=== PATIENT | female | born 1980 | race Caucasian/White ===

== ENCOUNTER 2018-09-10 23:27 | Inpatient (IN) | payer OTHER ==
[2018-09-10] MEDS ORDERED: Ringers Lactate 1,000 ML IV SCH (23:45)
[2018-09-10] MEDS ORDERED: BUTORPHANOL 1 MG/ML INJ IV PRN (23:58)
[2018-09-10] MEDS ORDERED: PENICILLIN 5 MU in NA CHLORIDE 0.9% 100 ML IV ONE (23:58)
[2018-09-10] MEDS ORDERED: MEPERIDINE HCL 25 MG/0.5 ML IV PRN (23:58)
[2018-09-10] MEDS ORDERED: PROMETHAZINE 25 MG/ML VIAL IM PRN (23:58)
[2018-09-10] MEDS ORDERED: METHYLERGONOVINE 0.2MG/ML AMP IM PRN (23:58)
[2018-09-10] MEDS ORDERED: Ringers Lactate 1,000 ML IV PRN (23:58)
[2018-09-10] MEDS ORDERED: CARBOPROST TROME 250 MCG/ML IM PRN (23:58)
[2018-09-11 00:33] LABS: RPR Titer ND
[2018-09-11 00:35] LABS: Absolute Lymphocytes (CBC) 2.3 K/uL (0.7-4.9); Basophils % 0.3 % (0-1.3); Eosinophils % 1.3 % (0-4.4); Hematocrit 37.2 % (36.0-45.0); Lymphocytes % 18.3 % (15.3-44.8); MPV 10.3 fL (7.6-11.3); Monocytes % 6.1 % (3.3-12.3); RBC Red Blood Cell Count 4.21 M/uL (3.86-4.86)
[2018-09-11 00:49] LABS: Urine Appearance CLEAR; Urine Bilirubin NEGATIVE (NEG); Urine Blood NEGATIVE (NEG); Urine Color YELLOW; Urine Glucose NEGATIVE (NEG); Urine Protein NEGATIVE (NEG); Urine Specific Gravity 1.015 (1.005-1.030); Urine Urobilinogen 0.2 mg/dL (0.2-1.0)
[2018-09-11] MEDS ORDERED: FENTANYL CITR 100 MCG/2 ML IV ONE (01:00)
[2018-09-11] MEDS ORDERED: ROPIVACAINE HCL 100 ML IV PRN (01:00)
[2018-09-11 01:05] LABS: Urine Bacteria <20 /HPF (<20); Urine Culture Reflex Order NOT NEEDED; Urine RBC NONE SEEN /HPF (NONE SEEN)
[2018-09-11] MEDS ORDERED: ROPIVACAINE HCL 0.2% 20ML AMP SQ ONE (01:05)
[2018-09-11] MEDS ORDERED: FENTANYL CITR 100 MCG/2 ML ONE (01:47)
[2018-09-11] MEDS ORDERED: OXYTOCIN/LR 20 UNIT/1,000 ML BAG IV ONE (01:59)
[2018-09-11] MEDS ORDERED: DOCUSATE NA/SENNA CONC 1 TAB PO PRN (02:36)
[2018-09-11] MEDS ORDERED: Oxycodone HCl/Acetaminophen 1 TAB TAB PO PRN (02:36)
[2018-09-11] MEDS ORDERED: ACETAMINOPHEN 500 MG TAB PO PRN (02:36)
[2018-09-11] MEDS ORDERED: DIPHENHYDRAMINE 25 MG TAB/CAP PO PRN ×2 (02:36→03:17)
[2018-09-11] MEDS ORDERED: BISACODYL 10 MG RECTAL SUPP RECT PRN (02:36)
[2018-09-11] MEDS ORDERED: OXYTOCIN/LR 20 UNIT/1,000 ML BAG IV SCH (03:00)
[2018-09-11] MEDS: IBUPROFEN 200 MG TAB PO PRN ×3 (07:07→19:38)
--- NOTE | 2018-09-11 11:53 | PN ---
patient, doing quite well. This morning, lochia is normal. IV will be discontinued withi n the next hour. The baby is doing well. We went over dismissal instructions. Dr. Monroy will pro bably be back this afternoon if not tomorrow morning and issue final dismissal orders. She has had h er Tdap immunization during her . No post epidural problems. The pruritus that she was inlulu bain reporting has now dissipated without any medications being given. No complaints or problems a t this time. NEY/ANTONELLA Voice ID: [id number] Report ID: [id number]
--- NOTE | 2018-09-11 13:11 | OP ---
Surgeon: Tj Chambers MD A 37-year-old 2, para 1, at 39 weeks 3 days, came in active labor, 3 cm on admission, went ra pidly to 6, at which time she requested and received epidural anesthesia. Within the next 30 minutes to an hour was complete and on the perineum. Second stage of 10 minutes or less. Spontaneous vagin al delivery of a 7-pound 6-ounce male infant. Nuchal cord x2 loosely. Apgars 9 and 9. A small firs t-degree laceration sutured with 2-0 chromic. Schultze delivery of the placenta, which was inspected and noted to be intact and normal. Less than 100 cc blood loss. Penicillin prophylaxis 5 million u nits x1. Patient tolerated all procedures well. Final Diagnoses: Term intrauterine , 39 weeks 3 days, spontaneous labor, vaginal delivery. Nuchal cord x2. Penicillin prophylaxis. NEY/ANTONELLA Voice ID: [id number] Report ID: [id number]
[2018-09-11] MEDS: Oxycodone HCl/Acetaminophen 1 TAB TAB PO PRN (14:55)
[2018-09-11 21:51] LABS: RPR (Rapid Plasma Reagin) NON-REACT (NON-REACT)
[2018-09-12] MEDS: Oxycodone HCl/Acetaminophen 1 TAB TAB PO PRN (02:05)
[2018-09-12] MEDS: IBUPROFEN 200 MG TAB PO PRN (02:55)
[2018-09-12 08:29] VITALS: BP 112/57; TEMP 97.6; BMI 30.9
--- NOTE | 2018-09-12 08:30 | PREOPHP ---
Date of Admission: 09/10/2018 Summary: This is a 37-year-old 2, para 1, patient of Dr. Mathias, followed antepartum with out complications. Rh positive, immune to Rubella. Positive beta strep screen. Came in active labo r. Dylan every 2 minutes. A good 3 cm on admission. The patient progressed to 6 cm at which time, she expresses desire for epidural this had been placed by Dr. Cade and she is quite comfortable at this point. Exam by myself and now shows the patient 8-1/2 cm, 100% effaced, 0 to almost +1 stat ion. Rupture of membranes, clear fluid. Anticipate relatively rapid delivery. Admission talk given . Family History: Noncontributory. Allergies: NO ALLERGIES. Physical Examination: HEENT: Clear. Pupils equal, round, and reactive to light and accommodation. Conjunctivae well perf used. No oral, lingual, or buccal lesions. Chest and Lungs: Clear. Breasts: Not examined. Abdomen: Term. Extremities: Clear. Pelvic: As stated. Admit and anticipate delivery relatively soon. NEY/ANTONELLA Voice ID: [id number]
--- NOTE | 2018-09-12 20:56 | DS ---
Date of Discharge: 09/12/2018 Ms. Moise is a 37-year-old , female, 2, para 1-0-0-1, at term, admitted in active rapidly advancing labor. She delivered a 7-pound 6-ounce male without complications, r eceived 1 dose of penicillin for beta strep prophylaxis. Lab work obtained during this hospital stay included an admission hemoglobin and hematocrit of 12.3 and 37.2, a negative urinalysis, RPR nonreac tive. She is Rh positive blood type. She was dismissed to take Tylenol or ibuprofen for pain relief , to be seen back in my office in 1 week and 6 weeks and to continue taking her iron and vit amins. FACUNDO/ANTONELLA Voice ID: [id number] Report ID: [id number]
[2018-09-13 13:27] LABS: HBsAG Nonreactive (Nonreactive)
== END 2018-09-12 10:40 | disposition home or self-care (01) | DRG 807 ==
LOC: L&D 23:27 → 2ND-WC 23:55
PROVIDERS: ADMIT Specialist; ATTEND Specialist
PROC: 10E0XZZ Delivery of Products of Conception, External Approach (ICD-10-PCS; principal; 2018-09-11)
PROC: 0HQ9XZZ Repair Perineum Skin, External Approach (ICD-10-PCS; 2018-09-11)
DX: O69.81X0 Labor and delivery complicated by cord around neck, without compression, not applicable or unspecified (principal); Z37.0 Single live birth; Z3A.39 39 weeks gestation of pregnancy; O70.0 First degree perineal laceration during delivery; O99.824 Streptococcus B carrier state complicating childbirth
CPT/HCPCS: 36415; 81001; 85025; 86592; 86901; 87340; J2210; J2590; J2795; J3010

== ENCOUNTER 2020-04-07 14:53 | Emergency (ER) | payer OTHER ==
--- NOTE | 2020-04-07 15:53 | RAD REPORT ---
EXAM DESCRIPTION: RAD - Finger-Thumb Right - 04/07/2020 3:32 pm CLINICAL HISTORY: SMASH INJURYsecond digit COMPARISON: No comparisons FINDINGS: A three-view examination of the right second digit performed. No fracture, dislocation or periosteal reaction. No acute bone or joint finding seen. No air or forei gn body in the soft tissues. IMPRESSION: No fracture or acute bone finding right second digit.
--- NOTE | 2020-04-07 19:56 | EDPHYS ---
Physician Documentation [facility] Name: Naty Moise Age: 39 yrs Sex: Female : 1980 Arrival Date: 04/07/2020 Time: 14:57 Bed 24 Private MD: ED Physician Elizabeth Lacy HPI: 04/07 19:51 This 39 yrs old Female presents to ER via Ambulatory with complaints of pm1 Finger Injury. 19:51 Trauma demographics: Location of Injury: The injury occurred outdoors. Mechanism of pm1 injury: Crush injury: second right finger got crushed between boat and the dock when she was trying to help tie the boat to the dock. Patient took NSAID prior to arrival and reports that her finger no longer hurts. 19:51 Associated injuries: The patient sustained dorsal aspect of middle phalanx of right pm1 index finger. Onset: The symptoms/episode began/occurred today. The patient has not experienced similar symptoms in the past. The patient has not recently seen a physician. Historical: - Allergies: 15:01 No Known Allergies; sv - PMHx: 15:01 None; sv - PSHx: 15:01 None; sv - Immunization history:: Adult Immunizations up to date. - Social history:: Smoking status: . ROS: 19:51 Constitutional: Negative for fever, chills, and weight loss, Cardiovascular: Negative pm1 for chest pain, palpitations, and edema, Respiratory: Negative for shortness of breath, cough, wheezing, and pleuritic chest pain. 19:51 MS/extremity: Positive for injury or acute deformity, abrasion, of the dorsal aspect of middle phalanx of right index finger, Negative for decreased range of motion, deformity. 19:51 Skin: Positive for abrasion(s). 19:51 Neuro: Negative for numbness, tingling, to right fingers. Exam: 19:51 Constitutional: This is a well developed, well nourished patient who is awake, alert, pm1 and in no acute distress. Head/Face: Normocephalic, atraumatic. 19:51 Cardiovascular: Exam negative for acute changes, Rate: normal, Rhythm: regular, Pulses: no pulse deficits are appreciated. 19:51 Respiratory: Exam negative for acute changes, respiratory distress, shortness of breath. 19:51 Musculoskeletal/extremity: Extremities: grossly normal except: noted in the dorsal aspect of middle phalanx of right index finger: abrasion, There is no evidence of decreased ROM, deformity, to right hand, ROM: intact in all extremities, Circulation is intact in all extremities. 19:51 Skin: Appearance: normal except for affected area, injury, abrasion(s), small abrasion noted, of the dorsal aspect of middle phalanx of right index finger. Vital Signs: 15:01 BP 106 / 64; Pulse 68; Resp 14; Temp 98.3; Pulse Ox 99% ; Weight 72.57 kg; Height 5 ft. sv 8 in. (172.72 cm); Pain 0/10; 19:15 BP 110 / 70; Pulse 70; Resp 16; Pulse Ox 98% on R/A; ll2 15:01 Body Mass Index 24.33 (72.57 kg, 172.72 cm) sv MDM: 19:47 Patient medically screened. pm1 19:51 ED course: Patient reports tetanus is less than 5 years. Patient reports no pain to pm1 injury and refused a finger splint. FROM intact to all fingers on right hand. 19:51 Data reviewed: vital signs. pm1 19:51 Counseling: I had a detailed discussion with the patient and/or guardian regarding: the pm1 historical points, exam findings, and any diagnostic results supporting the discharge/admit diagnosis, radiology results, the need for outpatient follow up, to return to the emergency department if symptoms worsen or persist or if there are any questions or concerns that arise at home. 04/07 15:03 Order name: Finger-Thumb RIGHT XRAY; Complete Time: 19:08 sv Administered Medications: No medications were administered Disposition: 04/07/20 19:55 Discharged to Home. Impression: Contusion of right index finger without damage to nail, Abrasion of right index finger. - Condition is Stable. - Discharge Instructions: Abrasion, Hand Contusion. - Prescriptions for Doxycycline Hyclate 100 mg Oral Tablet - take 1 tablet by ORAL route every 12 hours; 20 tablet. - Work release form, Medication Reconciliation Form, Thank You Letter, Antibiotic Education, Prescription Opioid Use form. - Follow up: Emergency Department; When: As needed; Reason: Worsening of condition. Follow up: Private Physician; When: 2 - 3 days; Reason: Recheck today's complaints, Continuance of care, Re-evaluation by your physician. Follow up: Patrick Kebede MD; When: 2 - 3 days; Reason: Recheck today's complaints, Continuance of care, Re-evaluation by your physician. - Problem is new. - Symptoms have improved. Addendum: 04/09/2020 06:55 Co-signature as Attending Physician, Elizabeth Lacy MD. m a2 Signatures: Dispatcher [employer] Keena Ty, RN RN sv Abraham Le, PHARMACOLOGY TEACHER PHARMACOLOGY TEACHER pm1 Elizabeth Lacy MD MD ma2 Ifrah De La Cruz RN RN ll2 Corrections: (The following items were deleted from the chart) 04/07 20:22 19:55 04/07/2020 19:55 Discharged to Home. Impression: Contusion of right index finger ll2 without damage to nailAbrasion of right index finger. Condition is Stable. Forms are Medication Reconciliation Form, Thank You Letter, Antibiotic Education, Prescription Opioid Use. Follow up: Emergency Department; When: As needed; Reason: Worsening of condition. Follow up: Private Physician; When: 2 - 3 days; Reason: Recheck today's complaints, Continuance of care, Re-evaluation by your physician. Follow up: Patrick Kebede; When: 2 - 3 days; Reason: Recheck today's complaints, Continuance of care, Re-evaluation by your physician. Problem is new. Symptoms have improved. pm1 20:41 19:51 Mechanism of injury: Crush injury: second right finger got crushed between boat pm1 and the dock when she was trying to help tie the boat to the dock. Patient took NSAID prior to arrival and reports that her finger no longer works, pm1
--- NOTE | 2020-04-07 19:56 | ER ---
Nurse's Notes [facility] Name: Naty Moise Age: 39 yrs Sex: Female : 1980 Arrival Date: 04/07/2020 Time: 14:57 Bed 24 Private MD: Diagnosis: Abrasion of right index finger;Contusion of right index finger without damage to nail Presentation: 04/07 15:00 Chief complaint: Patient states: smashed her right index finger in between a boat and a sv dock about 1200 today. Ibuprofen taken about an hour ago. Coronavirus screen: Client denies travel out of the [place] in the last 14 days. At this time, the client does not indicate any symptoms associated with coronavirus-19. Ebola Screen: No symptoms or risks identified at this time. Risk Assessment: Do you want to hurt yourself or someone else? Patient reports no desire to harm self or others. Onset of symptoms was April 07, 2020. 15:00 Method Of Arrival: Ambulatory sv 15:00 Acuity: VERÓNICA 4 sv 15:01 Initial Sepsis Screen: Does the patient meet any 2 criteria? No. Patient's initial sv sepsis screen is negative. Does the patient have a suspected source of infection? No. Patient's initial sepsis screen is negative. Triage Assessment: 15:04 General: Appears in no apparent distress. comfortable, Behavior is calm, cooperative, sv appropriate for age. Pain: Denies pain. Neuro: Level of Consciousness is awake, alert, obeys commands, Oriented to person, place, time, situation, Appropriate for age Gait is steady. Respiratory: Respiratory effort is even, unlabored. Historical: - Allergies: 15:01 No Known Allergies; sv - PMHx: 15:01 None; sv - PSHx: 15:01 None; sv - Immunization history:: Adult Immunizations up to date. - Social history:: Smoking status: . Screenin:58 Abuse screen: Denies threats or abuse. Nutritional screening: No deficits noted. ll2 Tuberculosis screening: No symptoms or risk factors identified. Fall Risk None identified. Assessment: 19:15 General: Appears in no apparent distress. Behavior is calm, cooperative, appropriate ll2 for age. Pain: Complains of pain in right hand and dorsal aspect of middle phalanx of right index finger. Neuro: Level of Consciousness is awake, alert, obeys commands, Oriented to person, place, time, situation. Cardiovascular: Capillary refill < 3 seconds Patient's skin is warm and dry. Respiratory: Airway is patent Respiratory effort is even, unlabored, Respiratory pattern is regular, symmetrical. Musculoskeletal: Circulation, motion, and sensation intact. Range of motion: intact in all extremities, Swelling present in dorsal aspect of middle phalanx of right index finger. Vital Signs: 15:01 BP 106 / 64; Pulse 68; Resp 14; Temp 98.3; Pulse Ox 99% ; Weight 72.57 kg; Height 5 ft. sv 8 in. (172.72 cm); Pain 0/10; 19:15 BP 110 / 70; Pulse 70; Resp 16; Pulse Ox 98% on R/A; ll2 15:01 Body Mass Index 24.33 (72.57 kg, 172.72 cm) sv ED Course: 14:57 Patient arrived in ED. ds1 15:00 Triage completed. sv 15:01 Arm band placed on. sv 15:32 Finger-Thumb RIGHT XRAY In Process Unspecified. EDMS 19:08 Abraham Le NP is PHCP. pm1 19:08 Elizabeth Lacy MD is Attending Physician. pm1 19:20 Patient has correct armband on for positive identification. Bed in low position. Call ll2 light in reach. Side rails up X 1. 19:20 Pulse ox on. NIBP on. ll2 19:53 Patrick Kebede MD is Referral Physician. pm1 19:55 No provider procedures requiring assistance completed. Patient did not have IV access ll2 during this emergency room visit. 19:59 Ifrah De La Cruz, BAKARI is Primary Nurse. ll2 Administered Medications: No medications were administered Outcome: 19:55 Discharge ordered by . pm1 20:22 Patient left the ED. ll2 20:22 Discharged to home ambulatory. ll2 20:22 Condition: stable 20:22 Discharge instructions given to patient, Instructed on discharge instructions, follow up and referral plans. Demonstrated understanding of instructions, follow-up care. Signatures: Dispatcher [employer] EDMS Keena Stock RN RN Sherron Gutiérrez ds1 Abraham Le NP TECHNICAL STAFF ASSISTANT pm1 [place], Ifrah, RN RN ll2 Corrections: (The following items were deleted from the chart) 15:02 15:00 Chief complaint: Patient states: smashed her right index finger in between a boat sv and a dock about 1200 today. sv 15:03 15:01 Pulse 68bpm; Resp 14bpm; Pulse Ox 99%; Temp 98.3F; 72.57 kg; Height 5 ft. 8 in.; sv BMI: 24.3; Pain 0/10; sv
[2020-04-07 20:32] VITALS: BP 106/64; TEMP 98.3; O2SAT 99
--- OUTSIDE RECORDS SUMMARY | 2020-04-09 01:28 | XMS REPORT | Continuity of Care Document ---
:1980 Author Organization [facility] t Address [address] [place] [address] Care Team Providers Name Role Phone Unavailable Unavailable Unavailable Problems This patient has no known problems. Allergies, Adverse Reactions, Alerts This patient has no known allergies or adverse reactions. Medications This patient has no known medications. Procedures This patient has no known procedures. Results Test Description Test Time Test Comments Results Result Sourc e Comments SCR MAMM 2019-08-16 MAMM BILATERAL BILATERAL ODETTE 16:41:47 ODETTE CAD CAD DIGITAL DIGITALBILATERAL FIRST EVER DIGITAL SCREENING MAMMOGRAM 3D/2D WITH CAD: 08/13/2019CLINICAL: Asymptomatic. Digital breast tomosynthesis was performed in addition to routine CC and MLO views. Current mammographic images were evaluated by either a Tube2Tone M-Vu or a [employer] ImageChecker CAD (computer aided detection system). No prior exams were available for comparison. The tissue of both breasts is heterogeneously dense. This may lower the sensitivity of mammography. No suspicious mass, architectural distortion, malignant type calcification, or lymph node abnormality detected. IMPRESSION: NEGATIVEThere is no mammographic evidence of malignancy. Resume annual screening mammography in one year. Ruthann rodriguez/penrad:08/16/2019 16:41:47 Entry: - 08/17/2019 09:44:07Imaging Technologist: Swetha Jackson MM, [facility] Mammographyletter sent: BIRADS 1-2 Normal Mammogram BI-RADS: 1 Negative
== END 2020-04-07 20:22 | disposition home or self-care (01) ==
LOC: ER 14:53
DX: S60.021A Contusion of right index finger without damage to nail, initial encounter (principal); S60.410A Abrasion of right index finger, initial encounter; V94.89XA Other water transport accident, initial encounter
CPT/HCPCS: 99283